=== PATIENT | male | born 1945 | race Caucasian/White ===

== ENCOUNTER 2017-06-27 17:10 | Inpatient (IN) | payer MEDICARE ==
[~2017-06-27] VITALS: Ht 180.3 cm; Wt 80.3 kg
[~2017-06-27 17:10] MED LIST: ALLOPURINOL 30300 M1 PO; ALLOPURINOL PO; ATORVASTATIN CA40 MG PO; BAYER CHEWABLE81 MG PO; CENTRUM SILVER1 EAC4 PO; CLARITIN10 MG PO; CLONIDINE PO; COLCHICINE 0.60.6 M1 PO; DILTIAZEM 24HR120 M1 PO; ELIQUIS2.5 MG PO; ELIQUIS5 MG PO; FLOMAX0.4 MG PO; IRON159 MG PO; LASIX 40 MG TAB40 M2 PO; LISINOPRIL-HCT1 EAC1 PO; LISINOPRIL-HCT1 EAC2 PO; LISINOPRIL20 MG PO; LISINOPRIL40 MG PO; MEDROL DOSPAK21 TA1 PO; PACERONE 200 M200 M1 PO; PERCOCET 7.5-31 EACH PO; POTASSIUM20 PO; PREDNISONE 2.52.5 M1 PO; PRILOSEC 20 MG20 MG PO; PRINIVIL20 MG PO; TRIAMTERENE-HC1 EAC1 PO
[2017-06-27 17:14] VITALS: BP 164/84
[2017-06-27] MEDS ORDERED: ULORIC80 MG PO (17:23)
[2017-06-27] MEDS ORDERED: OCUVITE SOFTGE1 EAC1 PO (17:23)
[2017-06-27] MEDS ORDERED: FISH OIL 1,001000 M2 PO (17:26)
[2017-06-27] MEDS ORDERED: HYDRALAZINE 2525 MG PO (17:26)
[2017-06-27] MEDS ORDERED: FLECAINIDE ACET50 M2 PO (17:27)
[2017-06-27 17:38] LABS: ABSOLUTE BASOPHILS 0.1 thou/uL (0.0-0.2); ABSOLUTE EOSINOPHILS 0.4 thou/uL (0.0-0.7); ABSOLUTE LYMPHOCYTES 1.9 thou/uL (0.8-5.3); ABSOLUTE MONOCYTES 1.1 thou/uL (0.0-1.2); ABSOLUTE NEUTROPHILS 7.4 thou/uL (1.6-8.1); BASOPHILS 0.9 %; EOSINOPHILS 3.3 %; HEMATOCRIT 33.2 % (42.0-52.0); LYMPHOCYTES 17.6 %; MCHC 33.2 g/dL (28.0-37.0); MCV 84.4 fL (80.0-100.0); MONOCYTES 10.1 %; MPV 7.9 fl. (7.2-11.1); NUCLEATED RBCS 0 /100WBC; PLATELET COUNT* 310 thou/uL (150-400); POLYS 68.1 %; RBC 3.93 mil/uL (4.50-6.00); RDW-CV 15.1 % (10.5-14.5); WBC 10.9 thou/uL (4.0-11.0)
[2017-06-27 17:53] LABS: ANION GAP 11 mmol/L (7-16); BUN 20 mg/dL (7-18); CALCIUM 8.9 mg/dL (8.5-10.1); CHLORIDE 101 mmol/L (98-107); CO2 27 mmol/L (21-32); GLUCOSE 126 mg/dL (70-99); SODIUM 139 mmol/L (136-145)
[2017-06-27 17:57] LABS: POTASSIUM 2.9 mmol/L (3.5-5.1)
[2017-06-27 18:02] LABS: INR 1.2; PROTIME 11.2 Seconds (9.20-11.50)
[2017-06-27 18:14] LABS: ALBUMIN 2.8 g/dL (3.4-5.0); ALKALINE PHOSPHATASE 157 U/L (46-116); LIPASE 151 U/L (73-393); MAGNESIUM 1.6 mg/dL (1.8-2.4); NT-PRO BRAIN NAT PEPTIDE 16981 pg/mL (<300); SGOT 22 U/L (15-37); SGPT 17 U/L (30-65); TOTAL BILIRUBIN 0.8 mg/dL (<0.1-1.0); TOTAL PROTEIN 7.4 g/dL (6.4-8.2); TROPONIN-I LEVEL <0.06 ng/mL (<0.06)
--- NOTE | 2017-06-27 20:33 | NUR ---
0.9% NS INFUSING ON IV PUMP AT 70ML/HR, LEVAQUIN INFUSING PIGGYBACKED TO NS FOR INFUSION ENROUTE TO FLOOR. NO SWELLING OR ERYTHEMA AT IV SITE.
[2017-06-27 20:40] VITALS: BP 167/85
[2017-06-27] MEDS ORDERED: ATORVASTATIN CA40 MG PO (21:00)
[2017-06-27 21:02] VITALS: BP 163/53
[2017-06-28] VITALS: BP 146/69
[2017-06-28 04:00] VITALS: BP 142/64
[2017-06-28 05:33] LABS: CALCIUM 8.1 mg/dL (8.5-10.1); CREATININE 2.1 mg/dL (0.6-1.3); MAGNESIUM 1.5 mg/dL (1.8-2.4); POTASSIUM 3.7 mmol/L (3.5-5.1)
--- NOTE | 2017-06-28 05:51 | NUR ---
PATIENT ARRIVED VIA CART FROM ED AROUND 2039. A/OX4 AND PLEASANT. TELE MONITOR TRACING SR/BBB WITH PAC'S AND PVC'S THIS AM. APPEARS TO BE AFIB NOW WITH HR UP TO 120'S ABOUT 15 MINUTES AFTER BREATHING TREATMENT. PT REPORTS FEELING FAST HR, BUT DENIES ANY OTHER SYMPTOMS. VSS. ON ROOM AIR. IV SALINE LOCKED. UP AD MARTHA, VOIDING PER URINAL. SEE I&O'S. GRANDDAUGHTER WORKS HERE. SEE CHARTING. CALL LIGHT IN REACH, WILL CONTINUE WITH PLAN OF CARE.
[2017-06-28 08:00] VITALS: BP 113/56
[2017-06-28 12:00] VITALS: BP 137/87
--- NOTE | 2017-06-28 12:07 | NUR ---
CM ASSESSMENT: Pt is A&O. Resides at home with his . Independent with ADLs. No DME. No hx of HH or SNF. Anticipate dc to home tomorrow. Following.
--- NOTE | 2017-06-28 12:54 | EKG ---
[place] [address] ELECTROCARDIOGRAM REPORT Name: RAJNI EDWARDS Room: [address] ADM IN [facility]#: [id number] Admission: 06/27/17 Attend Phys: Korey Maradiaga Discharge: Date of : 45 Report #: [id number] THIS REPORT FOR: //name// 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: Sandie REYES : 1945 Requested By: Corey Rosario Order Number: [id number] MD: Juan Manuel Garnica Measurements Intervals [place] Rate: 113 P: [place]: QRS: -63 QRSD: 144 T: 109 QT: 359 QTc: 493 Interpretive Statements Atrial fibrillation Nonspecific IVCD with LAD LVH with secondary repolarization abnormality Anterior infarct, old Compared to ECG 04/04/2016 02:13:14 Sinus rhythm no longer present Electronically Signed On 06-28-2017 12:54:15 POWERHOUSE ENGINEER by Juan Manuel Garnica [email or web address] <ELECTRONICALLY SIGNED> By: Juan Manuel Garnica MD, [facility] 06/28/17 1254 1715 1715 Juan Manuel Garnica MD, [facility] /EPI
--- NOTE | 2017-06-28 15:25 | 2DMMODE ---
[place] [address] 2 D/M-MODE ECHOCARDIOGRAM Name: RAJNI EDWARDS Room: [address] IN [facility]#: [id number] Admission: 06/27/17 Attend Phys: Danilo Martinez Discharge: Date of : 45 Date of Service: 06/28/17 1524 Report #: [id number] THIS REPORT FOR: //name// APPROVED REPORT Study performed: 06/28/2017 10:17:59 EXAM: Comprehensive 2D, Doppler, and color-flow Echocardiogram Patient Location: In-Patient Room #: [facility] Status: routine BSA: 2.00 HR: 98 bpm BP: 142/64 mmHg Rhythm: Atrial Fibrillation Other Information Study Quality: Good Indications Atrial Fibrillation Dyspnea 2D Dimensions LVEF(%): 40.26 (>50%) IVSd: 14.51 (7-11mm) LVOT Diam: 23.48 (18-24mm) LVDd: 60.95 mm PWd: 12.54 (7-11mm) Ascending Ao: 36.05 (22-36mm) LVDs: 48.75 (25-40mm) Aortic Root: 36.50 mm Sarkar's LVEF: 40.26 % Volumes Left Atrial Volume (Systole) LA ESV Index: 44.30 mL/m2 Aortic Valve AoV Peak John.: 1.61 m/s AO Peak Gr.: 10.36 mmHg LVOT Max P.21 mmHg AO Mean Gr.: 6.04 mmHg LVOT Mean P.81 mmHg LVOT Max V: 1.14 m/s AO V2 VTI: 25.78 cm LVOT Mean V: 0.79 m/s SONU (VTI): 3.14 cm2 LVOT V1 VTI: 18.71 [place] [address] 2 D/M-MODE ECHOCARDIOGRAM Name: RAJNI EDWARDS Room: [address] IN [facility]#: [id number] Admission: 06/27/17 Attend Phys: Danilo Martinez Discharge: Date of : 45 Date of Service: 06/28/17 1524 Report #: [id number] MV Decel. Time: 115.74 ms MV PHT: 33.56 ms MVA (PHT): 6.55 cm2 TDI Medial E' John.: 0.07 m/s Pulmonary Valve PV Peak John.: 0.98 m/s PV Peak Gr.: 3.85 mmHg Tricuspid Valve TR Peak Gr.: 32.38 mmHg RVSP: 37.00 mmHg Left Ventricle The left ventricle is normal size. There is mild global hypokinesis Mild to moderate concentric left ventricular hypertrophy. Left ventricular systolic function is mildly decreased. LVEF is 45-50%. This study is not technically sufficient to allow evaluation of the LV diastolic function due to atrial flutter. Right Ventricle The right ventricle is normal size. The right ventricular systolic function is normal. Atria Left atrium is moderately dilated. The right atrium is mildly dilated. Aortic Valve Mild aortic valve sclerosis. No aortic regurgitation is present. There is no aortic valvular stenosis. Mitral Valve The mitral valve is normal in structure. Mild mitral regurgitation. No evidence of mitral valve stenosis. Tricuspid Valve The tricuspid valve is normal in structure. Mild tricuspid regurgitation. The RVSP is 35-40 mmHg. Pulmonic Valve The pulmonary valve is normal in structure. There is no pulmonic valvular regurgitation. Great Vessels The aortic root is normal in size. [place]C [place] [address] 2 D/M-MODE ECHOCARDIOGRAM Name: RAJNI EDWARDS Room: [address]#: [id number] Admission: 06/27/17 Attend Phys: Danilo Martinez Discharge: Date of : 45 Date of Service: 06/28/17 1524 Report #: [id number] collapses with >50% inspiration Pericardium There is no pericardial effusion. Left pleural effusion. <Conclusion> The left ventricle is normal size. Mild to moderate concentric left ventricular hypertrophy. Left ventricular systolic function is mildly decreased. LVEF is 45-50%. There is mild global hypokinesis Left atrium is moderately dilated. The right atrium is mildly dilated. Mild mitral regurgitation. Mild tricuspid regurgitation. The RVSP is 35-40 mmHg. IVC is normal in size and collapses with >50% inspiration <ELECTRONICALLY SIGNED> By: Giovanni Rouse MD, FACC 06/28/17 1524 1524 1524 Giovanni Rouse MD, FACC /INF
[2017-06-28 16:00] VITALS: BP 125/57
--- NOTE | 2017-06-28 19:16 | NUR ---
ASSUMED CARE OF PT AT 0730. PT CONTINUES TO BE A&O X4 CALM AND COOPERATIVE. PT HAS DENIED ANY C/O PAIN OR DISTRESS. HE HAS BEEN TRACING A FIB WITH A BBB ON THE MONITOR TODAY WITH RATES IN THE LOW 100'S. HE HAS BEEN UP AD MARTHA IN HIS ROOM TODAY AND HAD A SHOWER THIS AFTERNOON. PT HAD SOME C/O ACID REFLUX AND WAS GIVEN CALCIUM CARB. THAT EFFECTIVELY REDUCED THIS TO A TOLERABLE LEVEL FOR A SHORT PERIOD, WAS CONTACTED AND PROTONIX PO STARTED. PT CURRENTLY RESTING IN BED WITH AT BEDSIDE. NURSING WILL CONTINUE TO MONITOR.
[2017-06-28 20:00] VITALS: BP 154/85
[2017-06-29] VITALS: BP 150/68
[2017-06-29 04:00] VITALS: BP 115/38; BP 141/67
--- NOTE | 2017-06-29 05:29 | NUR ---
ASSUMED CARE AROUND 1930. PT A/OX4 AND PLEASANT. MAIN COMPLAINT THIS SHIFT WAS HEARTBURN, REPORTED PROTONIX HAD NOT HELPED. ORDERS RECEIVED FOR PRN TUMS AND PEPCID. PT REPORTED SOME RELIEF. PT REPORTS RELIEF ALSO WHEN SITTING UP IN A CHAIR OR STANDING. AMBULATING IN HAND LAST NIGHT. TELE TRACING SR/BBB. ON ROOM AIR. IVF INFUSING ORDERED. VOIDING PER URINAL. VSS. REPORTED LEFT RIB PAIN THAT RESOLVED WHEN STANDING UP. SEE CHARTING. CALL LIGHT IN REACH, WILL CONTINUE WITH PLAN OF CARE.
[2017-06-29 05:45] LABS: HEMATOCRIT 26.9 % (42.0-52.0); MCH 27.4 pg (26.0-34.0); MCHC 32.2 g/dL (28.0-37.0); MCV 85.2 fL (80.0-100.0); MPV 8.1 fl. (7.2-11.1); NUCLEATED RBCS 0 /100WBC; PLATELET COUNT* 291 thou/uL (150-400); RBC 3.15 mil/uL (4.50-6.00); RDW-CV 15.3 % (10.5-14.5)
[2017-06-29 06:06] LABS: MAGNESIUM 1.7 mg/dL (1.8-2.4); POTASSIUM 3.9 mmol/L (3.5-5.1)
[2017-06-29 06:21] LABS: HEMOGLOBIN 8.6 gm/dL (14.0-18.0)
[2017-06-29 06:54] LABS: ABSOLUTE LYMPHOCYTES 0.9 thou/uL (0.8-5.3); ABSOLUTE MONOCYTES 0.2 thou/uL (0.0-1.2); ABSOLUTE NEUTROPHILS 16.9 thou/uL (1.6-8.1); ANISOCYTOSIS 1+; PLATELET ESTIMATE ADEQUATE
[2017-06-29 07:06] LABS: CREATININE 3.2 mg/dL (0.6-1.3)
[2017-06-29 07:30] VITALS: BP 135/66
[2017-06-29] MEDS ORDERED: FLECAINIDE ACET50 M1 PO (07:56)
[2017-06-29] MEDS ORDERED: DILTIAZEM 24HR120 M1 PO (07:56)
[2017-06-29 09:58] VITALS: BP 135/66
--- NOTE | 2017-06-29 10:34 | NUR ---
RECEIVED PT CARE 0700. PT IS ALERT AND ORIENTED X4. VSS. RECREATION COORDINATOR TRACING SR. PT DENIES PAIN. NO SOA. O2 SAT 96% ON ROOM AIR. UP INDEPENDENTLY IN ROOM. GAIT IS STEADY. AM ASSESSMENT CHARTED. MEDS PER MAR. PLANNING FOR PATIENT TO DC TO HOME TODAY PENDING XRAY RESULTS. CALL LIGHT WITHIN REACH. WILL CONTINUE TO MONITOR.
[2017-06-29] MEDS ORDERED: PREDNISONE 10 M10 M1 PO (10:57)
[2017-06-29] MEDS ORDERED: LEVAQUIN 250 M250 MG PO (10:58)
[2017-06-29 12:10] VITALS: BP 131/53
--- NOTE | 2017-06-29 13:17 | NUR ---
RECEIVED DISCHARGE ORDERS PER DR DIA. IV DISCONTNUED. BOAT WASHER REMOVED AND RETURNED TO NURSE'S DESK. PATIENT DRESSED, ALL BELONGINGS ARE PACKED AND LEAVING WITH PATIENT. EDUCATED THE PATIENT AND HIS SPOUSE ON F/U APPT WITH HIS PRIMARY AND CARDIOLOGY. EDUCATED ON HOME MEDICATIONS AND DOSES OF HIS CARDIAC MEDICATIONS. CLARIFIED FLECAINIDDE DOSE WITH DR BARR PRIOR TO PATIENT DISCHARGING (100MG DAILY). PAIENT VERBALIZED UNDERSTANDING. HE DENIES ANY QUESTIONS OR CONCERNS AT DISCHARGE. LEAVING VIA WHEELCHAIR ACCOMPANIED BY NURSING STAFF.
[2017-08-07] MEDS ORDERED: LISINOPRIL5 MG PO (15:23)
[2017-08-07] MEDS ORDERED: CARVEDILOL3.125 MG PO (15:23)
== END 2017-06-29 13:21 | disposition home or self-care (01) | DRG 291 ==
LOC: M.ERS 17:10 → M.2W 19:01 → M.TBA-ER 19:01 → M.2W 20:40
PROVIDERS: Family Medicine; Internal Medicine; ADMIT Internal Medicine
DX: I13.0 Hypertensive heart and chronic kidney disease with heart failure and stage 1 through stage 4 chronic kidney disease, or unspecified chronic kidney disease (principal); I50.43 Acute on chronic combined systolic (congestive) and diastolic (congestive) heart failure; J16.8 Pneumonia due to other specified infectious organisms; R65.10 Systemic inflammatory response syndrome (SIRS) of non-infectious origin without acute organ dysfunction; N18.3 Chronic kidney disease, stage 3 (moderate); E83.51 Hypocalcemia; E83.42 Hypomagnesemia; E78.5 Hyperlipidemia, unspecified; I48.91 Unspecified atrial fibrillation; E87.6 Hypokalemia; M10.9 Gout, unspecified; K21.9 Gastro-esophageal reflux disease without esophagitis; G43.909 Migraine, unspecified, not intractable, without status migrainosus; Z98.42 Cataract extraction status, left eye; Z79.899 Other long term (current) drug therapy; Z91.041 Radiographic dye allergy status; Z87.442 Personal history of urinary calculi; Z82.49 Family history of ischemic heart disease and other diseases of the circulatory system

== ENCOUNTER → 2017-07-18 | Outpatient (CLI) | payer MEDICARE ==
[~2017-07-18] MED LIST changes: +CARVEDILOL3.125 MG PO; +FISH OIL 1,001000 M2 PO; +FLECAINIDE ACET50 M1 PO; +FLECAINIDE ACET50 M2 PO; +HYDRALAZINE 2525 MG PO; +LEVAQUIN 250 M250 MG PO; +LISINOPRIL5 MG PO; +OCUVITE SOFTGE1 EAC1 PO; +PREDNISONE 10 M10 M1 PO; +ULORIC80 MG PO
== END ==
LOC: M.RAD 11:17
DX: J90 Pleural effusion, not elsewhere classified (principal); I12.9 Hypertensive chronic kidney disease with stage 1 through stage 4 chronic kidney disease, or unspecified chronic kidney disease; N18.4 Chronic kidney disease, stage 4 (severe); I48.0 Paroxysmal atrial fibrillation

== ENCOUNTER → 2017-08-07 | Outpatient (CLI) | payer MEDICARE ==
[~2017-08-07] VITALS: Ht 180.3 cm; Wt 79.4 kg
[2017-08-07 11:48] LABS: HEMATOCRIT 28.8 % (42.0-52.0); HEMOGLOBIN 9.4 gm/dL (14.0-18.0); MCH 26.9 pg (26.0-34.0); MCHC 32.5 g/dL (28.0-37.0); MCV 82.8 fL (80.0-100.0); MPV 7.4 fl. (7.2-11.1); RBC 3.48 mil/uL (4.50-6.00); RDW-CV 17.6 % (10.5-14.5)
[2017-08-07 11:58] LABS: APTT 29.5 Seconds (25.0-31.3); INR 1.1; PROTIME 10.8 Seconds (9.20-11.50)
[2017-08-07 11:59] LABS: ANION GAP 9 mmol/L (7-16); BUN 39 mg/dL (7-18); CALCIUM 9.1 mg/dL (8.5-10.1); CHLORIDE 103 mmol/L (98-107); CO2 30 mmol/L (21-32); CREATININE 2.8 mg/dL (0.6-1.3); GLUCOSE 118 mg/dL (70-99); POTASSIUM 3.9 mmol/L (3.5-5.1); SODIUM 142 mmol/L (136-145)
[2017-08-07 12:01] LABS: ALBUMIN 2.8 g/dL (3.4-5.0); ALKALINE PHOSPHATASE 163 U/L (46-116); CHOLESTEROL 197 mg/dL (<200); HDL CHOLESTEROL 62 mg/dL (>40); LDL CHOLESTEROL 114 mg/dL (<100); SGOT 18 U/L (15-37); SGPT 18 U/L (30-65); TC:HDL 3.2 Ratio (Not establshd); TOTAL BILIRUBIN 0.4 mg/dL (<0.1-1.0); TOTAL PROTEIN 6.9 g/dL (6.4-8.2); TRIGLYCERIDE 106 mg/dL (<150); VLDL 21 mg/dL (<40)
[2017-08-07 12:02] LABS: SERUM ASSESSMENT Clear
[2017-08-07 12:05] VITALS: BP 134/70
[2017-08-07 13:53] LABS: BE 1.8 mmol/L (-2 to +3); HCO3 26.7 mmol/L (22.0-26.0); PCO2 VENOUS 43.1 mmHg (41.0-51.0)
[2017-08-07 13:55] LABS: PO2 VENOUS 35.4 mmHg (35.0-45.0)
[2017-08-07 13:58] LABS: BE 0.7 mmol/L (-2 to +3); HCO3 25.3 mmol/L (22.0-26.0); PCO2 VENOUS 40.4 mmHg (41.0-51.0)
[2017-08-07 13:59] LABS: PO2 VENOUS 37.3 mmHg (35.0-45.0)
[2017-08-07 14:02] LABS: BE 0.8 mmol/L (-2 to +3); HCO3 24.9 mmol/L (22.0-26.0); PO2 70.1 mmHg (75.0-100.0); pH 7.435 (7.340-7.450)
[2017-08-07 14:04] VITALS: BP 133/71
[2017-08-07 14:21] VITALS: BP 133/66
[2017-08-07 14:46] VITALS: BP 131/77
--- NOTE | 2017-08-07 14:55 | EKG ---
[place] [address] ELECTROCARDIOGRAM REPORT Name: RAJNI EDWARDS Room: [facility]#: [id number] Admission: 08/07/17 Attend Phys: Giovanni Rouse MD Discharge: Date of : 45 Report #: [id number] THIS REPORT FOR: //name// [facility] Test Date: 2017-08-07 Test Time: 11:24:18 Pat Name: RAJNI EDWARDS Department: Room: Gender: M Residential Specialist: [facility] : 1945 Requested By: Giovanni Rouse Order Number: [id number] Reading MD: Juan Manuel Garnica Measurements Intervals [place] Rate: 89 P: [place]: QRS: -68 QRSD: 169 T: 113 QT: 448 QTc: 546 Interpretive Statements Atrial fibrillation RBBB and LAFB consider old anterior infarction LVH with secondary repolarization abnormality Compared to ECG 06/27/2017 17:15:50 rate slowed Electronically Signed On 08-07-2017 14:55:28 CDT by Juan Manuel Garnica [email or web address] <ELECTRONICALLY SIGNED> By: Juan Manuel Garnica MD, [facility] 08/07/17 1455 1124 1124 Juan Manuel Garnica MD, FACC /EPI
[2017-08-07 15:00] VITALS: BP 127/69
[2017-08-07 15:19] VITALS: BP 135/68
--- NOTE | 2017-08-07 15:30 | 2DMMODE ---
[place] [address] 2 D/M-MODE ECHOCARDIOGRAM Name: RAJNI EDWARDS Room: [facility]#: [id number] Admission: 08/07/17 Attend Phys: Giovanni Rouse, Discharge: Date of : 45 Date of Service: 08/07/17 1530 Report #: [id number] THIS REPORT FOR: //name// APPROVED REPORT Study performed: 08/07/2017 09:55:15 EXAM: Comprehensive 2D, Doppler, and color-flow Echocardiogram Patient Location: Out-Patient Status: routine BSA: 1.99 HR: 86 bpm BP: 130/70 mmHg Other Information Study Quality: Good Indications Atrial Fibrillation 2D Dimensions LVEF(%): 44.66 (>50%) IVSd: 14.16 (7-11mm) LVOT Diam: 20.27 (18-24mm) LVDd: 57.22 mm PWd: 14.16 (7-11mm) Ascending Ao: 32.29 (22-36mm) LVDs: 44.35 (25-40mm) Aortic Root: 24.78 mm Sarkar's LVEF: 44.66 % Volumes Left Atrial Volume (Systole) LA ESV Index: 52.80 mL/m2 Aortic Valve AoV Peak John.: 1.58 m/s AO Peak Gr.: 9.99 mmHg LVOT Max P.30 mmHg AO Mean Gr.: 5.86 mmHg LVOT Mean P.45 mmHg LVOT Max V: 0.91 m/s AO V2 VTI: 31.00 cm LVOT Mean V: 0.54 m/s SONU (VTI): 1.82 cm2 LVOT V1 VTI: 17.51 cm Mitral Valve MV Decel. Time: 91.84 ms MV PHT: 26.63 [place] [address] 2 D/M-MODE ECHOCARDIOGRAM Name: RAJNI EDWARDS Room: [facility]#: [id number] Admission: 08/07/17 Attend Phys: Giovanni Rouse, Discharge: Date of : 45 Date of Service: 08/07/17 1530 Report #: [id number] MVA (PHT): 8.26 cm2 TDI Medial E' John.: 0.09 m/s Lateral E' John.: 0.22 m/s Pulmonary Valve PV Peak John.: 0.86 m/s PV Peak Gr.: 2.95 mmHg Tricuspid Valve TR Peak Gr.: 42.00 mmHg RVSP: 47.00 mmHg Left Ventricle Left ventricle is mildly dilated. There is global hypokinesis. Mild concentric left ventricular hypertrophy. Left ventricular ejection fraction is moderate to severely decreased. LVEF is 30-35%. This study is not technically sufficient to allow evaluation of the LV diastolic function due to atrial fibrillation. Right Ventricle The right ventricle is normal size. The right ventricular systolic function is normal. Atria Left atrium is moderately dilated. Right atrium is mildly dilated. Aortic Valve Aortic valve is mildly calcified. Mild aortic regurgitation. There is no aortic valvular stenosis. Mitral Valve The mitral valve is normal in structure. Severe mitral regurgitation. No evidence of mitral valve stenosis. Tricuspid Valve The tricuspid valve is normal in structure. Moderate tricuspid regurgitation. The RVSP is 60 mmHg. Pulmonic Valve The pulmonary valve is normal in structure. Mild pulmonic regurgitation. Great Vessels The aortic root is normal in size. IVC is normal in size and collapses with >50% [place] [address] 2 D/M-MODE ECHOCARDIOGRAM Name: RAJNI EDWARDS Room: [facility]#: [id number] Admission: 08/07/17 Attend Phys: Giovanni Rouse, Discharge: Date of : 45 Date of Service: 08/07/17 1530 Report #: [id number] Pericardium There is no pericardial effusion. <Conclusion> Left ventricle is mildly dilated. Mild concentric left ventricular hypertrophy. Left ventricular ejection fraction is moderate to severely decreased. LVEF is 30-35%. Left atrium is moderately dilated. Right atrium is mildly dilated. Aortic valve is mildly calcified. Mild aortic regurgitation. Severe mitral regurgitation. Moderate tricuspid regurgitation. The RVSP is 60 mmHg. Mild pulmonic regurgitation. IVC is normal in size and collapses with >50% inspiration <ELECTRONICALLY SIGNED> By: Giovanni Rouse MD, FACC 08/07/17 1530 1530 1530 Giovanni Rouse MD, FACC /INF
--- NOTE | 2017-08-09 17:11 | CARD ---
[address] [address] CARDIAC CATH REPORT Name: RAJNI EDWARDS Room: [facility]#: [id number] Admission: 08/07/17 Attend Phys: Giovanni Rouse MD Discharge: Date of : 45 Report #: [id number] THIS REPORT FOR: //name// APPROVED REPORT Study performed: 08/07/2017 11:39:47 Patient Details Patient Status: Out-Patient Room #: The patient is a 71 year-old male Event Personnel Giovanni Rouse Tank Builder And Erector, Kim Meier RN Senior Software Qa Analyst, Nina Russell Monitor, Emily Hawkins RTR Scrub Procedures Performed Art Access - R femoral artery* Michael Access - R femoral vein , Left Heart Catheterization, Right Heart Catheterization, Selective Right and Left Coronary Angiography Procedure Narrative The patient was brought electively to the Cardiac Catheterization Laboratory and was prepped and draped in a sterile manner. The right femoral was infiltrated with 1% Lidocaine subcutaneous anesthesia. The right femoral vein and artery were accessed via ultrasound guidance. A Right Heart Catheterization was performed with a 7 Fr. Ringgold-Rafael catheter and pressure were recorded. Cardiac outputs were obtained by the Thermal Dilution method. A 6fr Ultimum Sheath sheath was inserted into the right femoral artery. Coronary angiography was performed using coronary diagnostic catheters. The right coronary system was accessed and visualized with a Diagnostic JR 4 6fr catheter. The left coronary system was accessed and visualized with a Diagnostic JL 4 6fr catheter. Pre-demployment femoral angiogram was performed . Closure device was deployed with a 6 Fr MynxGrip 6/7F. The patient tolerated the procedure well and there were no complications associated with the procedure. There was no hematoma. Intraoperative Conscious Sedation Sedation start time: 12:47 Case end Time: 13:33 Fentanyl 50 mcg Versed 2 mg Fluoro Time: 19 minutes Dose: DAP [id number] cGycm2 1394.54 [place] [address] CARDIAC CATH REPORT Name: RAJNI EDWARDS Room: [facility]#: [id number] Admission: 08/07/17 Attend Phys: Goivanni Rouse MD Discharge: Date of : 45 Report #: [id number] Contrast Type and Amount: Visipaque 60 ml Coronary Angiography The patient's coronary anatomy is right dominant. Diagnostic Cath Left Main The left main coronary artery is very short and free of significant disease. LAD The left anterior descending coronary artery has an 80% ostial stenosis. There is a 50% mid stenoses noted. Diagonal 1 The first diagonal branch is small and free of significant disease. Diagonal 2 The second diagonal branch is a moderate size branch vessel without significant disease. Circumflex The circumflex has a 70% proximal and 50% mid stenoses. OM1 Free of significant disease OM2 Free of significant disease OM3 Free of significant disease Right Coronary The right coronary artery has a 70% mid stenosis and a 60% distal stenoses R PDA Free of significant disease Left Ventriculography Left Ventriculography was not performed. Hemodynamics The right atrial mean pressure is 5 mmHg. The right ventricular pressure is 51/11 mmHg. The pulmonary artery pressure is 54/7 mmHg with a mean of 24 mmHg. The mean pulmonary capillary wedge pressure is 15 mmHg. The aortic pressure is 137/71 mmHg with a mean of mmHg. The left ventricular pressure is 125/10 mmHg with a mean of mmHg. The left ventricular end diastolic pressure is 21 mmHg. PaO2 saturation is 65.70 %. Arterial saturation is 92.60 %. The cardiac output using thermo method is 6.55 L/min. The cardiac index using thermo method is 3.29 L/min/m2. Conclusion 1. Three-vessel coronary artery disease as outlined above. 2. Moderate pulmonary hypertension as outlined above. 3. Normal cardiac output. Recommendations 1. Referral to cardiothoracic surgery for coronary artery bypass grafting. 2. [place] [address] CARDIAC CATH REPORT Name: RAJNI EDWARDS Room: [facility]#: [id number] Admission: 08/07/17 Attend Phys: Giovanni Rouse MD Discharge: Date of : 45 Report #: [id number] 3. Consider Dave-Maze procedure. 4. Continue aggressive risk factor modification. <ELECTRONICALLY SIGNED> By: Giovanni Rouse MD, FAC 08/09/17 171 10 10Michaeashwin Rouse MD, [facility] /INF
== END | disposition home or self-care (01) ==
LOC: M.CRD 09:37
PROVIDERS: Internal Medicine Cardiovascular Disease
DX: I25.10 Atherosclerotic heart disease of native coronary artery without angina pectoris (principal); I51.7 Cardiomegaly; I08.3 Combined rheumatic disorders of mitral, aortic and tricuspid valves; I27.20 Pulmonary hypertension, unspecified; I13.0 Hypertensive heart and chronic kidney disease with heart failure and stage 1 through stage 4 chronic kidney disease, or unspecified chronic kidney disease; I50.9 Heart failure, unspecified; N18.9 Chronic kidney disease, unspecified; M10.9 Gout, unspecified; G43.809 Other migraine, not intractable, without status migrainosus; K21.9 Gastro-esophageal reflux disease without esophagitis; Z98.42 Cataract extraction status, left eye; Z98.890 Other specified postprocedural states; Z87.442 Personal history of urinary calculi; Z79.899 Other long term (current) drug therapy; Z79.01 Long term (current) use of anticoagulants; Z91.041 Radiographic dye allergy status; Z88.8 Allergy status to other drugs, medicaments and biological substances

== ENCOUNTER 2017-09-02 09:48 | Emergency (ER) | payer MEDICARE ==
[~2017-09-02] VITALS: Ht 180.3 cm; Wt 84.5 kg
[2017-09-02] MEDS ORDERED: LASIX 40 MG TAB40 M2 PO (10:03)
[2017-09-02 10:39] LABS: HEMATOCRIT 26.3 % (42.0-52.0); HEMOGLOBIN 8.5 gm/dL (14.0-18.0); MCH 26.3 pg (26.0-34.0); MCHC 32.1 g/dL (28.0-37.0); MCV 82.1 fL (80.0-100.0); MPV 7.9 fl. (7.2-11.1); NUCLEATED RBCS 0 /100WBC; PLATELET COUNT* 315 thou/uL (150-400); RBC 3.21 mil/uL (4.50-6.00); RDW-CV 17.7 % (10.5-14.5); WBC 6.6 thou/uL (4.0-11.0)
[2017-09-02 10:43] LABS: ANION GAP 11 mmol/L (7-16); BUN 61 mg/dL (7-18); CALCIUM 8.9 mg/dL (8.5-10.1); CHLORIDE 101 mmol/L (98-107); CO2 24 mmol/L (21-32); CREATININE 3.7 mg/dL (0.6-1.3); GLUCOSE 118 mg/dL (70-99); POTASSIUM 5.8 mmol/L (3.5-5.1); SODIUM 136 mmol/L (136-145)
[2017-09-02 10:50] LABS: ALKALINE PHOSPHATASE 183 U/L (46-116); MAGNESIUM 2.2 mg/dL (1.8-2.4); SGOT 61 U/L (15-37); SGPT 62 U/L (30-65); TOTAL BILIRUBIN 0.4 mg/dL (<0.1-1.0); TOTAL PROTEIN 7.2 g/dL (6.4-8.2); TROPONIN-I LEVEL <0.06 ng/mL (<0.06)
[2017-09-02 11:01] LABS: URINE BILIRUBIN NEGATIVE (Negative); URINE BLOOD NEGATIVE (Negative); URINE CLARITY CLEAR; URINE COLOR YELLOW; URINE GLUCOSE-RANDOM NEGATIVE (Negative); URINE KETONES NEGATIVE (Negative); URINE LEUKOCYTES-REFLEX NEGATIVE (Negative); URINE NITRITE-REFLEX NEGATIVE (Negative); URINE PROTEIN 2+ (Negative); URINE UROBILINOGEN 0.2 E.U./dl (0.2-1.0)
[2017-09-02 11:10] LABS: HYALINE CASTS 4-10 Moderate /LPF (None Seen); SQUAMOUS 0-3 Few /LPF (0-3)
[2017-09-02 11:11] LABS: BACTERIA-REFLEX None Seen /HPF (None Seen); CRYSTALS None Seen /LPF (None Seen); MUCUS 0-3 Light strn/LPF (None Seen); URINE RBC 0-2 Rare /HPF (0-2); URINE WBC-REFLEX 0-5 Rare /HPF (0-5)
[2017-09-02 11:37] LABS: ABSOLUTE EOSINOPHILS 1.5 thou/uL (0.0-0.7); ABSOLUTE LYMPHOCYTES 1.3 thou/uL (0.8-5.3); ABSOLUTE MONOCYTES 0.4 thou/uL (0.0-1.2); ABSOLUTE NEUTROPHILS 3.4 thou/uL (1.6-8.1); ATYPICAL LYMPHS 6 %
[2017-09-02 11:41] LABS: PLATELET ESTIMATE ADEQUATE
[2017-09-02 12:14] VITALS: BP 135/81
--- NOTE | 2017-09-03 11:09 | EKG ---
[place] [address] ELECTROCARDIOGRAM REPORT Name: RAJNI EDWARDS [facility] [id number] Admission: 09/02/17 Attend Phys: Discharge: 09/02/17 Date of : 45 Report #: [id number] THIS REPORT FOR: //name// [facility] ED Test Date: 2017-09-02 Test Time: 09:55:38 Pat Name: RAJNI EDWARDS Department: Room: Gender: M Funeral Professional: : 1945 Requested By: Nguyen Walton Order Number: [id number] MD: Juan Manuel Garnica Measurements Intervals [place] Rate: 62 P: 57 [place]: 246 QRS: -67 QRSD: 175 T: 109 QT: 473 QTc: 481 Interpretive Statements Sinus rhythm consider old septal infarction Prolonged [place] interval Probable left atrial enlargement RBBB and LAFB LVH with secondary repolarization abnormality Baseline wander in lead(s) II Compared to ECG 08/07/2017 11:24:18 Atrial fibrillation no longer present Electronically Signed On 09-03-2017 11:09:24 CDT by Juan Manuel Garnica [email or web address] <ELECTRONICALLY SIGNED> By: Juan Manuel Garnica MD, FAC 09/03/17 1109 0955 0955 Juan Manuel Garnica MD, [facility] /EPI
== END 2017-09-02 12:18 | disposition home or self-care (01) ==
LOC: M.ERS 09:48
PROVIDERS: Personal Emergency Response Attendant
DX: E87.5 Hyperkalemia (principal); D64.9 Anemia, unspecified; N17.9 Acute kidney failure, unspecified; R06.02 Shortness of breath; I10 Essential (primary) hypertension; M10.9 Gout, unspecified; K21.9 Gastro-esophageal reflux disease without esophagitis; Z87.442 Personal history of urinary calculi; Z91.041 Radiographic dye allergy status; Z88.1 Allergy status to other antibiotic agents

== ENCOUNTER → 2017-09-03 | Outpatient (CLI) | payer MEDICARE ==
[2017-09-03 13:04] LABS: CALCIUM 9.2 mg/dL (8.5-10.1); CREATININE 3.2 mg/dL (0.6-1.3); POTASSIUM 5.6 mmol/L (3.5-5.1)
== END ==
LOC: M.LAB 12:24
PROVIDERS: Internal Medicine
DX: E87.5 Hyperkalemia (principal); I48.0 Paroxysmal atrial fibrillation; I10 Essential (primary) hypertension; E11.9 Type 2 diabetes mellitus without complications

== ENCOUNTER 2017-09-09 04:46 | Inpatient (IN) | payer MEDICARE ==
[~2017-09-09] VITALS: Ht 180.3 cm; Wt 78.9 kg
[2017-09-09] VITALS (18 sets, daily range): BP systolic 90–137; BP diastolic 45–73
[2017-09-09 05:21] LABS: HEMATOCRIT 33.7 % (42.0-52.0); HEMOGLOBIN 10.5 gm/dL (14.0-18.0); MCH 25.8 pg (26.0-34.0); MCHC 31.1 g/dL (28.0-37.0); MCV 83.1 fL (80.0-100.0); MPV 8.2 fl. (7.2-11.1); NUCLEATED RBCS 0 /100WBC; PLATELET COUNT* 435 thou/uL (150-400); RBC 4.06 mil/uL (4.50-6.00); RDW-CV 17.9 % (10.5-14.5); WBC 22.5 thou/uL (4.0-11.0)
[2017-09-09 05:26] LABS: ANION GAP 16 mmol/L (7-16); BUN 52 mg/dL (7-18); CALCIUM 10.3 mg/dL (8.5-10.1); CHLORIDE 101 mmol/L (98-107); CO2 22 mmol/L (21-32); CREATININE 3.2 mg/dL (0.6-1.3); GLUCOSE 280 mg/dL (70-99); SODIUM 139 mmol/L (136-145)
[2017-09-09 05:28] LABS: INR 1.1; PROTIME 10.6 Seconds (9.20-11.50)
[2017-09-09 05:36] LABS: ALBUMIN 3.2 g/dL (3.4-5.0); ALKALINE PHOSPHATASE 189 U/L (46-116); LIPASE 264 U/L (73-393); MAGNESIUM 2.1 mg/dL (1.8-2.4); NT-PRO BRAIN NAT PEPTIDE 18849 pg/mL (<300); SGOT 16 U/L (15-37); SGPT 21 U/L (30-65); TOTAL BILIRUBIN 0.5 mg/dL (<0.1-1.0); TOTAL PROTEIN 8.2 g/dL (6.4-8.2); TROPONIN-I LEVEL <0.06 ng/mL (<0.06)
[2017-09-09 06:34] LABS: ABSOLUTE EOSINOPHILS 1.6 thou/uL (0.0-0.7); ABSOLUTE LYMPHOCYTES 3.2 thou/uL (0.8-5.3); ABSOLUTE MONOCYTES 0.2 thou/uL (0.0-1.2); ABSOLUTE NEUTROPHILS 17.6 thou/uL (1.6-8.1); PLATELET ESTIMATE INCREASED
[2017-09-09 06:35] LABS: ANISOCYTOSIS 1+; CLUMPED PLTS OCCASIONAL
--- NOTE | 2017-09-09 07:00 | NUR ---
PT ARRIVED TO UNIT PER ED. PT TACHYPNEIC AND PLACED ON BIPAP. PT PLACED ON MONITOR-AFIB IN 70S. FAMILY AT BS AND UPDATED ON CARE
--- NOTE | 2017-09-09 10:00 | NUR ---
HR DECREASES TO 30S THEN BACK UP TO 50S. PT ASYMPTOMATIC. CARDIZEM GTT D/CD
--- NOTE | 2017-09-09 12:10 | EKG ---
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: GAIL : 1945 Requested By: Henry Isaac Order Number: [id number] MD: Onel Pillai Measurements Intervals [place] Rate: 118 P: 0 NV: 79 QRS: -70 QRSD: 238 T: 89 QT: 423 QTc: 593 Interpretive Statements Wide complex tachycardia, consider a flutter with 2:1 block Left atrial enlargement Right bundle branch block LVH with secondary repolarization abnormality Artifact in lead(s) I,II,aVR,aVL,V2 Compared to ECG 09/02/2017 09:55:38 Sinus rhythm no longer present Myocardial infarct finding no longer present First degree AV block no longer present Left anterior fascicular block no longer present Electronically Signed On 09-09-2017 12:10:43 CDT by Onel Pillai [email or web address] <ELECTRONICALLY SIGNED> By: Jodi Pillai MD, [facility] 09/09/17 1210 0455 0455 Jodi Pillai MD, [facility] /EPI
--- NOTE | 2017-09-09 12:11 | EKG ---
[place] [address] ELECTROCARDIOGRAM REPORT Name: RAJNI EDWARDS Room: [address] ADM IN [facility]#: [id number] Admission: 09/09/17 Attend Phys: Sotero Angulo, Discharge: Date of : 45 Report #: [id number] THIS REPORT FOR: //name// [facility] Test Date: 2017-09-09 Test Time: 09:27:12 Pat Name: RAJNI EDWARDS Department: Room: [address] Gender: M Recovery Room Rn: SSULLPOLINA : 1945 Requested By: Suzie Ng Order Number: [id number] Reading MD: Onel Pillai Measurements Intervals [place] Rate: 67 P: 35 AL: 221 QRS: -60 QRSD: 150 T: 170 QT: 421 QTc: 445 Interpretive Statements Sinus rhythm Prolonged AL interval Probable left atrial enlargement Left bundle branch block Compared to ECG 09/02/2017 09:55:38 Left bundle-branch block now present Myocardial infarct finding no longer present Left anterior fascicular block no longer present Right bundle-branch block no longer present Left ventricular hypertrophy no longer present Early repolarization no longer present Electronically Signed On 09-09-2017 12:11:35 CDT by Onel Pillai [email or web address] <ELECTRONICALLY SIGNED> By: Jodi Pillai MD, [facility] 09/09/17 121 6 6 Jodi Pillai MD, [facility] /EPI
--- NOTE | 2017-09-09 18:40 | NUR ---
PT RESTING IN BED THROUGHOUT SHIFT. PT DENIES CHEST PAIN. BIPAP REMOVED THIS AFTERNOON. PT TOLERATING O2@4L WELL. PT HR IN 30-50S. AFLUTTER/AFIB AND SBRADY WITH BOTH RBB AND LBBB. PT DIURESING WELL. FAMILY AT BS AND UPDATED ON PLAN OF CARE
--- NOTE | 2017-09-09 18:45 | NUR ---
PT BRADYCARDIC WITH MULTIPLE PAUSES. PT HYPOTENSIVE. EKG PERFORMED AND FAXED TO DR PEÑA. DR PEÑA NOTIFIED. ORDER TO HOLD ALL BP MEDS. DR PEÑA TO CALL DR JONES TO SEE IF HE IS AVAILABLE FOR PACEMAKER PLACEMENT. REPORT TO SHANNAN MANDEL
--- NOTE | 2017-09-09 21:00 | NUR ---
THIS NURSE RECEIVED REPORT FROM HARRIETT MANDEL, DURING REPORT PT NOTED TO HAVE A PUASE IN HEART RHYTHM, EKG DONE, DR PEÑA NOTIFIED, PT DENIES PAIN, DENIES SOA, PT RESTING IN BED WITH AT BEDSIDE, SUPPLEMENTAL O2 VIA NC, PEREZ CATH INTACT TO DEPENDENT DRAINAGE, NITROGLYCERIN DRIP INFUSING, AT 2014 THIS NURSE RECEIVES FURTHER ORDERS FROM DR PEÑA, SEE POS, PT COMPLAINING OF CHEST DISCOMFORT THAT COMES AND GOES, PT UNABLE TO DESCRIBE THE DISCOMFORT, SAYS IT IS NOT PAIN OR PRESSURE JUST DISCOMFORT SOMETIMES, THIS NURSE EXPLAINS PLAN OF CARE TO PT AND HIS , MEDICATIONS EXPLAINED, PT AND HIS EXPRESS UNDERSTANDING
[2017-09-10] VITALS (22 sets, daily range): BP systolic 88–141; BP diastolic 50–82
[2017-09-10 03:21] LABS: HEMOGLOBIN 9.2 gm/dL (14.0-18.0); MCH 26.3 pg (26.0-34.0); MCHC 32.9 g/dL (28.0-37.0); MCV 79.9 fL (80.0-100.0); MPV 7.9 fl. (7.2-11.1); RBC 3.5 mil/uL (4.50-6.00); RDW-CV 18.1 % (10.5-14.5); WBC 8.8 thou/uL (4.0-11.0)
[2017-09-10 03:29] LABS: ALBUMIN 2.5 g/dL (3.4-5.0); CALCIUM 8.8 mg/dL (8.5-10.1); CREATININE 2.9 mg/dL (0.6-1.3); MAGNESIUM 1.7 mg/dL (1.8-2.4); POTASSIUM 3.8 mmol/L (3.5-5.1); TOTAL BILIRUBIN 0.6 mg/dL (<0.1-1.0); TOTAL PROTEIN 6.7 g/dL (6.4-8.2)
--- NOTE | 2017-09-10 05:12 | NUR ---
pt continues resting quietly in bed with daughter at bedside, pt denies chest pain, he does report discomfort/funny feeling intermittently to lower left rib cage as of 429, denies soa, remains on supplemental 02 at 4l per nc, pt currently tracing a fib on cardiac monitoring, drip titrated per protocol, pts magnesium replaced this am, pt encouraged to turn q 2 hours, pt refuses turning upon last 2 requests, pt expresses no complaints/ concerns at this time
--- NOTE | 2017-09-10 08:05 | NUR ---
ASSUMED CARE OF PATIENT AFTER RECIEVING BEDSIDE REPORT. ASSESSMENT COMPLETED, VSS. PATIENT CURRENTLY ON DOBUTAMINE GTT, PATIENT TOLERATING WELL. PACER PADS IN PLACE, IF NEEDED. PATIENT HOPEFUL TO RECEIVE PACEMAKER OR TO FIND OUT OPTIONS TO MOVE FORWARD. RN EXPLAINED PNEUMONIA INFECTION, PATIENT STATED UNDERSTANDING. PATIENT REPORTED ADVERSE REACTION TO AMIODARONE IN THE PAST, STATES OPTHAMOLOGIST EXPRESSED CONCERN ABOUT CALCIFICATIONS IN EYES 2/2 AMIODARONE USE. 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 PATIENT DENIES ANY CHEST PAIN OR SHORTNESS OF BREATH AT THIS TIME. CALL LIGHT WTIHIN REACH, USE REINFORCED. WILL CONTINUE TO MONITOR.
[2017-09-10 13:01] LABS: URINE BILIRUBIN NEGATIVE (Negative); URINE BLOOD 1+ (Negative); URINE CLARITY CLEAR; URINE COLOR YELLOW; URINE GLUCOSE-RANDOM NEGATIVE (Negative); URINE KETONES NEGATIVE (Negative); URINE LEUKOCYTES-REFLEX NEGATIVE (Negative); URINE NITRITE-REFLEX NEGATIVE (Negative); URINE PROTEIN TRACE (Negative); URINE SPECIFIC GRAVITY 1.015 (1.005-1.030); URINE UROBILINOGEN 0.2 E.U./dl (0.2-1.0)
[2017-09-10 13:13] LABS: BACTERIA-REFLEX None Seen /HPF (None Seen); CASTS None Seen /LPF (None Seen); CRYSTALS None Seen /LPF (None Seen); SQUAMOUS 0-3 Few /LPF (0-3); URINE WBC-REFLEX 0-5 Rare /HPF (0-5)
--- NOTE | 2017-09-10 14:23 | EKG ---
[place] [address] ELECTROCARDIOGRAM REPORT Name: RAJNI EDWARDS Room: [address] ADM IN M.R.#: [id number] Admission: 09/09/17 Attend Phys: Sotero Angulo, Discharge: Date of : 45 Report #: [id number] THIS REPORT FOR: //name// [facility] Test Date: 2017-09-09 Test Time: 19:11:13 Pat Name: RAJNI EDWARDS Department: Room: [address] Gender: M Robot Technician: SSULLPOLINA : 1945 Requested By: Sotero Angulo Order Number: [id number] Reading MD: Giovanni Whittington Measurements Intervals [place] Rate: 58 P: 9 [place]: 186 QRS: -63 QRSD: 144 T: 174 QT: 438 QTc: 431 Interpretive Statements Sinus bradycardia Atrial premature complexes in couplets Sinus pause Left bundle branch block Compared to ECG 09/09/2017 09:27:12 Atrial premature complex(es) now present Sinus pause or arrest now present Electronically Signed On 09-10-2017 14:22:54 CDT by Giovanni Whittington [email or web address] <ELECTRONICALLY SIGNED> By: Giovanni Whittington MD, [facility] 09/10/17 1422 10 10 Giovanni Whittington MD, [facility] /EPI
[2017-09-10 14:26] LABS: MAGNESIUM 1.9 mg/dL (1.8-2.4); POTASSIUM 4.3 mmol/L (3.5-5.1)
--- NOTE | 2017-09-10 14:50 | NUR ---
ICU ROUNDING: CM SPOKE TO THE RN IN-CHARGE OF THE PATIEN AND SHE INFORMS THAT THE PATIENT IS NOW OFF ALL DRIPS AND MAY TRANSFER TO TELE LATER ON TODAY. CM WILL REMAIN AVAILABLE TO ASSIST AND FOLLOW NEEDED.
--- NOTE | 2017-09-10 16:38 | CON ---
[address] [address] CONSULTATION Name: RAJNI EDWARDS Room: [address] IN .R.#: [id number] Admission: 09/09/17 Attend Phys: Sotero Angulo, Discharge: Date of : 45 Report #: [id number] THIS REPORT FOR: //name// CC: Juan Manuel Angulo DATE OF SERVICE: 09/09/2017 CARDIOLOGY CONSULTATION HISTORY OF PRESENT ILLNESS: I was asked by Dr. Angulo to see this 71-year-old white male in cardiology consultation for evaluation and treatment of probable congestive heart failure. This man has known coronary artery disease. He is preop for 4-vessel bypass graft surgery at [facility] that was supposed to occur in the fairly near future. He has known ischemic cardiomyopathy. His most recent echo showed an ejection fraction of 30-35%; that study is from 08/07/2017. Additionally, he has mild aortic regurgitation, severe mitral regurgitation and moderate tricuspid regurgitation. His pulmonary pressure was 60 on that echo. He developed fairly rapidly progressive and acute shortness of breath last night and early this morning. He does have a history of pneumonia a couple of months ago. He had been having a lot of coughing and sputum production. His sputum was green and yellow. He has had that sputum production recently and thought he might be coming down with pneumonia again. He seems to have reflux and gets heartburn a lot at night and coughs a lot at night. He has been treated for reflux in the past, he had been on Prilosec, but it was stopped. He has had an esophageal stricture that needed dilating in the past. He is followed by Dr. Ziegler in [place] [place]. The possibility of aspiration should be entertained here. This man had a recent cardiac catheterization and coronary angiography, which demonstrated an 80% ostial LAD stenosis, 70% proximal circumflex stenosis, and a 70% mid right coronary stenosis. There was also a 60% distal stenosis in the right coronary. There was a 50% mid stenosis in the circumflex. Left main was free of disease. Left ventriculography was not performed. Additionally, he had a recent nuclear study, which showed evidence of large infarcts involving the inferior wall and apex. There was minimal residual ischemia and moderate to severe left ventricular dysfunction. He has a variety of other illnesses including essential hypertension, paroxysmal atrial fibrillation, hypercholesterolemia, gout, chronic kidney disease, right bundle branch block. He really has atrial fibrillation/flutter, I believe. He has gone into sinus here in the ICU this morning. On his EKG today he has left bundle branch block. On EKGs when he was admitted there was right bundle branch block and there was right bundle branch block on EKG from August. He did come in to the ER in what appears to be probably atrial flutter with 2:1. It could be sinus tachycardia, but I think it is more likely atrial flutter as when he did slow down was in what appeared to be atrial fib/flutter for a while. He is now in sinus rhythm. Before he presented, he did have an infected tooth and was put on antibiotics and his [address] [address] CONSULTATION Name: RAJNI EDWARDS Room: [address] IN [facility].#: [id number] Admission: 09/09/17 Attend Phys: Sotero Angulo, Discharge: Date of : 45 Report #: [id number] surgery was delayed. Additionally, this man has gout and chronic kidney disease. His creatinine today was 3.2 with BUN 52 and an estimated GFR of 19. Troponins were negative when he came in at this time; however, his NT-proBNP was 18,849 or nearly 19,000. A BNP several weeks ago was 990. He does appear to have alternating bundle branch block on EKGs, as today he has left bundle and last night he appeared to have right bundle when he was tachycardic, and he appeared to have a right bundle on an EKG from 09/02/2017. He was having chest pain as well when he came in. His chest pain was described as dull and 7-8 on a scale of 10. It went on for quite a while, over an hour, it was finally relieved when he came to the Emergency Room. He was placed on a nitroglycerin drip in the Emergency Room, he did get aspirin 325 mg on route to the ER. Apparently he did not get sublingual nitro. His chest pain has been relieved for several hours now. The most recent troponin was 2.4. PAST MEDICAL HISTORY: Essentially as described above. Of note, he does have a past history of smoking, but no longer smokes. He does have a history of hypercholesterolemia and high blood pressure. He has not had diabetes, although his blood sugar at this time was 242. It was postprandial, however. He has not had a family history of heart disease. He does have chronic renal disease. He has not had any peripheral vascular disease or carotid disease. He has not had claudication. He has not had strokes or TIAs. ALLERGIES: ALLERGIC TO IODINE, ESPECIALLY IV IODINE. HE IS ALSO ALLERGIC TO LEVAQUIN, CAUSES TENDINITIS. HOME MEDICATIONS: His home meds include carvedilol 3.25 mg b.i.d., lisinopril 5 mg b.i.d., hydralazine 50 mg b.i.d., flecainide 100 mg b.i.d., Eliquis 5 mg b.i.d., atorvastatin 40 mg daily, diltiazem 120 mg b.i.d., Uloric 80 mg daily, potassium 20 mEq daily and furosemide 40 mg p.r.n. REVIEW OF SYSTEMS: Positive for cough, sputum production, pneumonia, wheezing, palpitations, chest discomfort, shortness of breath with exercise, shortness of breath lying down, waking up short of breath, passing out, extremity edema, prediabetes, seasonal allergies, CONTRAST DYE ALLERGY, LEVAQUIN ALLERGY. Otherwise, his review of systems is negative for some 30 different complaints in 14 different categories including central nervous system, general, respiratory, cardiovascular, endocrine, gastrointestinal, genitourinary, hematologic, lymphatic, allergic, immunologic, psychiatric, musculoskeletal, skin, eyes, ears, nose, mouth, and throat. Please see review of systems form for details and negatives in review of systems. SOCIAL HISTORY: He is . 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 He does not smoke, drink or use illegal drugs. PHYSICAL EXAMINATION: GENERAL: He presents as a well-developed, well-nourished [place], [place] [address] CONSULTATION Name: RAJNI EDWARDS Room: [address]#: [id number] Admission: 09/09/17 Attend Phys: Sotero Angulo, Discharge: Date of : 45 Report #: [id number] acute distress. VITAL SIGNS: Pulse was 67 and irregular, now it is regular. Blood pressure is 100/60, respirations 29 and regular, he was on BiPAP and his temperature was 98.3 degrees. HEENT: His head was atraumatic. Eyes clear. NECK: Supple. There is no jugular venous distention or hepatojugular reflux. LUNGS: Revealed bibasilar rales that were moist. HEART: Revealed normal first and second heart sounds. There was no S4, no S3. There were no murmurs, rubs, thrills, heaves or gallops. PMI is nondisplaced. Rhythm was irregular when I examined him, the rate was in the 60s. PMI was not displaced. ABDOMEN: Soft, flat, nontender, no palpable masses, no organomegaly. EXTREMITIES: Reveal no cyanosis, clubbing or edema. NEUROLOGIC: The patient mentated normally, talked normally, moved all extremities normally. He was on BiPAP. IMPRESSION: 1. Congestive heart failure, acute on chronic, systolic and diastolic. 2. Probable small non-ST segment elevation myocardial infarction. 3. Pneumonia, possibly aspiration pneumonia. 4. Ischemic cardiomyopathy. 5. Coronary artery disease. 6. Essential hypertension. 7. Paroxysmal atrial fibrillation. 8. Hypercholesterolemia. 9. Gout. 10. Chronic kidney disease stage 4. 11. Alternating right bundle branch block and left bundle branch block. RECOMMENDATION: He is going to need aggressive diuresis and aggressive treatment for his pneumonia. I would leave him on the Eliquis and put him on low dose of aspirin. I would make sure he gets his hydralazine and low dose of lisinopril as I would stop his flecainide for now and consider putting him on amiodarone. He is likely going to need a pacemaker because of his alternating bundle branch block and discontinue his diltiazem. I will get a Pulmonary consult. Thank you very much for asking me to see the patient. If there are any questions, please feel free to contact me. <ELECTRONICALLY SIGNED> By: Jodi Pillai MD, [facility] 09/10/17 1638 [id number] [id number]. Onel Pillai MD, [facility] /nt
--- NOTE | 2017-09-10 17:40 | NUR ---
PATIENT DID VERY WELL WORKING TOWARDS GOALS THIS SHIFT. PATIENT ABLE TO BE OFF OF OXYGEN WHEN AWAKE. PATIENT DID REQUIRE 2L VIA NASAL CANNULA WHEN SLEEPING. PATIENT UP TO CHAIR TWICE TODAY FOR MEALS, PATIENT TOLERATED WELL. PATIENT DIURESED, PATIENT RESPONDED WELL. SEVERAL IN DEPTH CONVERSATIONS WITH FAMILY AND PHYSICIANS REGARDING PLAN OF CARE, PATIENT AND FAMILY SEEM TO UNDERSTAND. PATIENT DOWNGRADED TO TELEMETRY PER DR. TYSON AND DR. BARR. BEDSIDE REPORT TO BE GIVEN TO ONCOMING SHIFT.
--- NOTE | 2017-09-10 22:08 | NUR ---
REPORT GIVEN TO MINISTERIO OSEGUERA. PT. ALERT AND ORIENTED, TO TRANSFER TO 201. ABLE TO GO VIA WHEELCHAIR. VITAL SIGNS STABLE, IV SALINE LOCKED. ROOM AIR ON TRANSPORT. PT. TRANSFERRED TO ROOM 201 BY THIS RN AT 7824
[2017-09-11 04:00] VITALS: BP 112/59
[2017-09-11 04:58] LABS: HEMATOCRIT 26.7 % (42.0-52.0); HEMOGLOBIN 8.9 gm/dL (14.0-18.0); MCH 26.4 pg (26.0-34.0); MCHC 33.3 g/dL (28.0-37.0); MCV 79.1 fL (80.0-100.0); MPV 8.4 fl. (7.2-11.1); RBC 3.38 mil/uL (4.50-6.00); RDW-CV 17.5 % (10.5-14.5); WBC 10.2 thou/uL (4.0-11.0)
[2017-09-11 05:15] LABS: ALBUMIN 2.3 g/dL (3.4-5.0); CREATININE 2.9 mg/dL (0.6-1.3); POTASSIUM 4.5 mmol/L (3.5-5.1); TOTAL BILIRUBIN 0.3 mg/dL (<0.1-1.0); TOTAL PROTEIN 6.6 g/dL (6.4-8.2)
[2017-09-11 05:39] LABS: TROPONIN-I LEVEL 11.05 ng/mL (<0.06)
--- NOTE | 2017-09-11 06:52 | NUR ---
Pt arrived from ICU at 2144. Pt stayed up in recliner until approx 2330 when assisted to bed. C/O gout pain to R hand/arm which he states impairs his ability to push himself up from chair. Miranda draining clear yellow urine with some clots in tubing noted this am. In atrial flutter per monitor, rate 100's for much of night, but currently 70s-80s. VSS. Wears 3L O2 when sleeping, otherwise RA. stayed in pt's room overnight, then left just now to check on dogs at home, then run some errands. Pt has attentive and very involved family members. Will continue to monitor.
--- NOTE | 2017-09-11 07:44 | CON ---
[address] [address] CONSULTATION Name: RAJNI EDWARDS Room: [address] IN M.R.#: [id number] Admission: 09/09/17 Attend Phys: Sotero Angulo, Discharge: Date of : 45 Report #: [id number] THIS REPORT FOR: //name// CC: Juan Manuel Angulo REQUESTING PHYSICIAN: Dr. Pillai. REASON FOR CONSULTATION: Pulmonary infiltrates, possible pneumonia. DISCUSSION: The patient is a 71-year-old nonsmoking man. He has a known history of significant coronary artery disease and is to have coronary artery bypass grafting surgery as well as valve replacement surgery in the near future. He presented to the Emergency Department yesterday with significant shortness of breath. He was in marked distress, did require BiPAP. He had had fairly sudden onset of this and it was associated with chest pain. He was seen in the Emergency Department, noted to be quite dyspneic. Was placed on BiPAP, subsequently was transitioned over to O2 via nasal cannula. Was given Lasix. Chest x-ray revealed bilateral infiltrates. He has had some chronic upper airway congestion. He does have known history of allergies. He was treated for pneumonia here at [facility] several months ago. Some of his congestion was yellowish in color, there was some concern he could have pneumonia. He had an excellent diuresis overnight with over 4 liters out. He has remained afebrile. He has been on nasal cannula. Subjectively, he is feeling much better today. He is a lifelong nonsmoker. His history is remarkable that he did have asthma years ago. However, he has not had symptoms for close to 30 years. Even back when he was, he would use [id number]-qsqaxma inhalers. He does have ongoing issues with "allergies." It is primarily upper airway congestion, postnasal drip. He is not normally on any oxygen, inhalers at home. He was treated for pneumonia earlier this year as noted. His cardiac history is significant in that he does have a history of atrial fibrillation, found to have coronary artery disease and coronary artery bypass grafting surgery is to be done. However, he was also found to have significant mitral regurgitation. He was having dental work done. He had a tooth pulled in anticipation of valve replacement. PAST MEDICAL HISTORY: Also remarkable for chronic kidney disease, gout, small-bowel obstruction requiring exploratory laparotomy in year 2009, ruptured Achilles tendon (from fluoroquinolones), parathyroidectomy, GERD requiring esophageal dilatation in the past, repair of incisional hernia. HOME MEDICATIONS: Do not include any oxygen or inhalers. Does take Eliquis, Lipitor, Coreg, diltiazem, Uloric, flecainide, Lasix, hydralazine, lisinopril, [place] [address] CONSULTATION Name: GRACERAJNI Ivan Room: [address] IN [facility]#: [id number] Admission: 09/09/17 Attend Phys: Sotero Angulo, Discharge: Date of : 45 Report #: [id number]. SOCIAL HISTORY: He is a lifelong nonsmoker. He is . 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 FAMILY HISTORY: Positive for kidney disease, hypertension. REVIEW OF SYSTEMS: ROS was done. Note positives above. He did have a fair amount of congestion several months ago and he was in the hospital and treated for pneumonia. It did improve, though did not clear up completely. A lot of this stemmed from his upper airway. With his recent acute episode, he has noted some blood-tinged sputum. Chest pain he has has resolved. Did not have any associated nausea, vomiting with that. He has had some reflux type symptoms. No syncopal episodes. He is not aware of any fevers at home. Denies syncopal episodes. No swelling in his lower extremities. PHYSICAL EXAMINATION: GENERAL APPEARANCE: A man who looks stated age. He is resting in bed. His is at the bedside. He is alert, cooperative, able to speak in full sentences. He is in no acute distress. HEENT: Head is normocephalic, atraumatic. Sclerae nonicteric. Mucous membranes do look a little dry. NECK: Negative for adenopathy. Neck veins are not distended. Trachea is midline. HEART: Irregular irregular. No S3 is appreciated. LUNGS: Reveal breath sounds to be diminished. He does have some crackles heard at the bases. He does have a few late expiratory wheezes heard. Excursion is equal. No abdominal dullness to percussion and no decreased tactile fremitus. No E to A changes. ABDOMEN: Soft, without appreciable hepatosplenomegaly. No guarding or rebound tenderness. EXTREMITIES: Negative for edema. He does have SCDs on the lower extremities. SKIN: Warm and dry. NEUROLOGIC: He is alert and oriented x 3. LABORATORY AND X-RAY FINDINGS: Chest films were reviewed. On his initial study done yesterday morning, he did have extensive bilateral infiltrates. Had some blunting of costophrenic angles, which could be consistent with pleural effusions. On followup study done today, there has been dramatic improvement in his studies. No pleural effusions are noted. Does appear to have a nipple shadow present on the right. I do note he had a CT scan done of his chest in June when he was in the hospital and treated for pneumonia at that time. He did have bilateral pleural effusions noted at that time. He had bilateral infiltrates. He had some nodular infiltrate seen in the right upper lobe and to a certain degree in the left upper lobe. No worrisome masses were noted. On his chemistry, potassium is 3.8. Sodium is 140, BUN of 56, creatinine [place] 2[place] [address] CONSULTATION Name: GRACERAJNI Ivan Room: [address] IN [facility]#: [id number] Admission: 09/09/17 Attend Phys: Sotero Angulo, Discharge: Date of : 45 Report #: [id number] Troponins have bumped up this morning to 19.61. ProBNP yesterday 18,845. White blood cell count 8800 today. Yesterday was 22,500. Did not have a left shift. IMPRESSION: 1. Status post acute respiratory failure. Has improved considerably. Given the extensive infiltrates noted on his chest film yesterday and almost complete clearing on today's, most consistent with acute pulmonary edema. Does have what appears to be a nipple shadow on his chest x-ray. He did not have any nodules or masses noted in that area on the CT scan done late June of this year. It would have been just over 2 months ago. It is less likely, he does have a true abnormality there. 2. Non-ST elevation myocardial infarction. He already has known coronary artery disease and ischemic cardiomyopathy. Awaiting bypass surgery when medically stable. 3. Severe mitral regurgitation. Probably contributes to his florid pulmonary edema. 4. Chronic kidney disease. 5. Gout. 6. Recent episode of pneumonia. Clinically, I doubt he has any significant lower respiratory tract infection at this time. 7. History of allergies. I suspect a lot of his upper airway congestion and cough is related to that. 8. Non-massive hemoptysis. Associated with this acute event. He is already chronically anticoagulated with the Eliquis. With the acute pulmonary edema and presumed elevation in pulmonary artery pressures during that time, having hemoptysis is not unexpected. RECOMMENDATIONS: 1. We will add some Xopenex. Since he is wheezing on exam, this may help. However, I suspect much of the wheezing is probably related to the pulmonary edema. 2. Wean FiO2 as able. 3. Activity as tolerated. 4. Should be able to deescalate antibiotics as soon as well. <ELECTRONICALLY SIGNED> By: Regina Landa MD 09/11/17 0744 1247 [id number] Landa MD /nt
[2017-09-11 08:45] VITALS: BP 104/66
--- NOTE | 2017-09-11 08:45 | NUR ---
ASSUMED PT. CARE AND RECEIVED REPORT AT 0730. PT A/OX4, VSS, MONITOR ON TRACING AFIB. PT. C/O PAIN IN RIGHT ELBOW AND LEFT THUMB DUE TO GOUT, DENIES CP. ON RA @ 95%. CHRIS NOTED TO DD. PT. UP TO BATHROOM TO CLEAN UP, STEADY ON FEET. FULL ASSESSMENT COMPLETED, REFER TO CHARTING. UP TO RECLINER FOR BREAKFAST. CALL LIGHT IN REACH, WILL CONTINUE WITH PLAN OF CARE.
[2017-09-11 11:41] VITALS: BP 128/76
--- NOTE | 2017-09-11 12:08 | NUR ---
Pt is A&O. Resides at home with his . Normally very independent and active. No DME. No hx of HH or SNF. Goal is to return home at [place]. Following
[2017-09-11 15:38] VITALS: BP 122/65
--- NOTE | 2017-09-11 18:51 | NUR ---
PT. PROGRESSING TOWARDS GOALS. UP TO CHAIR AND AMBULATING IN ROOM TODAY. CHRIS DC'D PER ORDERS FROM DR. BARR. PT. ONE I.V. REMAINING IN PLACE TO LEFT JUGLULAR, DOES NOT WANT TO BE POKED AGAIN AT THIS TIME FOR BETTER POSITIONING. PT. POSSIBLE DC TO HOME TOMORROW TO FOLLOW WITH SURGEON FOR CABG. PT. STATED RELIEF THIS AFTERNOON TO RIGHT ELBOW GOUT PAIN. HOURLY ROUNDING COMPLETED THROUGH OUT THE DAY FOR PT. SAFETY.
[2017-09-11 20:18] VITALS: BP 127/66
[2017-09-11 23:25] VITALS: BP 122/60
[2017-09-12] VITALS (10 sets, daily range): BP systolic 95–159; BP diastolic 56–98
[2017-09-12 01:53] LABS: CALCIUM 9.5 mg/dL (8.5-10.1); POTASSIUM 4.6 mmol/L (3.5-5.1)
[2017-09-12 02:00] LABS: TOTAL BILIRUBIN 0.2 mg/dL (<0.1-1.0); TOTAL PROTEIN 7.7 g/dL (6.4-8.2)
[2017-09-12 02:13] LABS: TROPONIN-I LEVEL 5.63 ng/mL (<0.06)
--- NOTE | 2017-09-12 05:40 | NUR ---
Pt up ad alvin and ambulated in hallway at least 3X during early part of shift. Pt up in chair until appprox 0030 when pt got ready for bed. At 0045, pt called, c/o chest pressure right after lying down in bed. Rates 3/10, then increased to 6/10. COTTON GROWER initiated. Pt received 3 doses NTG, which brought pain down to 1. Reports pain moves from front of chest to back. SaO2 mid to upper 80s on RA. O2 placed per NC, titrated up to 5L before reaching low 90s. BP initially 150s/90s, then down to 140s/80s. Paged Dr. Rouse and updated on pt's event and condition. Orders received. See orders and COTTON GROWER documentation. Pt's called by dtr who was staying in pt's room for the night. arrived shortly afterwards. rubbed pt's back periodically, which pt reports helps relieve pressure. Pt continues to rate pain/pressure at 1, and states it continues to oscillate between chest and upper back. VSS. O2 decreased to 3L (SaO2 97% on 5L). Will continue to monitor.
--- NOTE | 2017-09-12 09:16 | EKG ---
[place] [address] ELECTROCARDIOGRAM REPORT Name: RAJNI EDWARDS Room: [address] ADM IN [facility].#: [id number] Admission: 09/09/17 Attend Phys: Sotero Angulo, Discharge: Date of : 45 Report #: [id number] THIS REPORT FOR: //name// [facility] Test Date: 2017-09-12 Test Time: 00:50:36 Pat Name: RAJNI EDWARDS Department: Room: [address] Gender: M Radiological Defense Officer: JOHN : 1945 Requested By: Sotero Angulo Order Number: [id number] Fransisco MD: Giovanni Rouse Measurements Intervals [place] Rate: 106 P: 200 [place]: 91 QRS: -67 QRSD: 180 T: 101 QT: 491 QTc: 653 Interpretive Statements Sinus tachycardia Left bundle branch block Baseline wander in lead(s) V1,V2,V3 Compared to ECG 09/09/2017 19:11:13 Sinus bradycardia no longer present Atrial premature complex(es) no longer present Sinus pause or arrest no longer present Electronically Signed On 09-12-2017 9:16:32 CDT by Giovanni Rouse [email or web address] <ELECTRONICALLY SIGNED> By: Giovanni Rouse MD, [facility] 09/12/17 0916 0050 0050 Giovanni Rouse MD, [facility] /EPI
--- NOTE | 2017-09-12 09:39 | NUR ---
ASSUMED CARE OF PATIENT AFTER REPORT THIS MORNING. PATIENT AWAKE, ALERT, AND ORIENTED APPROPRIATELY. PHYSICAL ASSESSMENT COMPLETED AND CHARTED. NO COMPLAINTS OF PAIN. VITAL SIGNS STABLE. OXYGEN SATURATION WITHIN HETAL LIMITS. SCHEDULED MEDICATIONS GIVEN, SEE EMAR FOR DOCUMENTATION. PATIENT TRANSFERS AND AMBULATES INDEPENDENTLY WITHOUT DIFFICULTY. USES CALL LIGHT APPROPRIATELY, WITHIN REACH. FAMILY IN ROOM. DENIES NEEDS. NURSING WILL CONTINUE TO MONITOR.
--- NOTE | 2017-09-12 17:43 | NUR ---
NO CHANGE IN PATIENT STATUS. REMAINS ALERT AND ORIENTED APPROPRIATELY. DENIES NEEDS. CALL LIGHT WITHIN REACH. NURSING WILL CONTINUE TO MONITOR.
[2017-09-12 19:57] LABS: CREATININE 2.9 mg/dL (0.6-1.3); POTASSIUM 5.6 mmol/L (3.5-5.1)
[2017-09-12 19:58] LABS: CALCIUM 8.9 mg/dL (8.5-10.1)
[2017-09-13] VITALS (8 sets, daily range): BP systolic 105–146; BP diastolic 65–81
[2017-09-13 05:02] LABS: CALCIUM 9.2 mg/dL (8.5-10.1); CREATININE 2.7 mg/dL (0.6-1.3); POTASSIUM 5.1 mmol/L (3.5-5.1)
--- NOTE | 2017-09-13 06:46 | NUR ---
Pt's granddaughter stayed in room overnight. Pt pain free until 0545; c/o pain to back, which later moved partly to chest. Rates 3/10. NTG given X 2 doses, and placed 2L O2. Pain relieved following 2nd dose of NTG. Pt stayed in recliner overnight bc he was concerned that he may develop angina if he went to bed, which is what occurred the night before. 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 VSS. Atrial flutter per monitor, HR 100s-110s. Will continue to monitor.
--- NOTE | 2017-09-13 07:20 | NUR ---
CHANGE OF SHIFT BEDSIDE REPORT GIVEN PATIENT SEEN AT BEDSIDE PATIENT SEEN SITTING UP IN RECLINER NO REQUESTS AT THIS TIME ASSUMED PATIENT CARE
--- NOTE | 2017-09-13 12:30 | NUR ---
PATIENT WITH C/O PAIN IN MID BACK TO FRONT OF L UPPER CHEST RATES AT 4-5 NTG SL GIVEN X [address] CHAN NOTIFIED VS AND HRR STABLE WILL CONT TO MONITOR
--- NOTE | 2017-09-13 14:30 | NUR ---
PATIENT WITH C/O BACK AMD CHEST PAIN RATES 5-6 AND RADIATING TO L SHOULDER NTG X [address] WITH RELIEF [address] CHAN NOTIFIED DR TO COME SEE PATIENT TREVA
--- NOTE | 2017-09-13 15:00 | NUR ---
DR CHAN TO SEE PATIENT ORDERS TO START NS AT 80CC/HR, HEPARIN GTT PER ACS PROTOCAL, PREMED WITH BENADRYL AND SOLUMEDROL IVP, CONSENT FOR CARDIAC CATH FAMILY AT BEDSIDE WILL CONT TO MONITOR AND PREP PATIENT FOR CARDIAC CATH PER [facility]
[2017-09-13 15:22] LABS: INR 1.1; PROTIME 10.7 Seconds (9.20-11.50)
[2017-09-13 15:25] LABS: CHOLESTEROL 182 mg/dL (<200); HDL CHOLESTEROL 53 mg/dL (>40); LDL CHOLESTEROL 104 mg/dL (<100); TC:HDL 3.4 Ratio (Not establshd); TRIGLYCERIDE 129 mg/dL (<150); VLDL 26 mg/dL (<40)
[2017-09-13 15:26] LABS: SERUM ASSESSMENT CLEAR
--- NOTE | 2017-09-13 15:45 | NUR ---
PATIENT WITH C/O CHEST PAIN L UPPER CHEST RATES 6 NTG GIVEN X 3 DOSES NOT MUCH RELIEF AT THIS TIME DR CHAN NOTIFIED ORDERS FOR MORPHINE IVP GIVEN PATIENT DIAPHORETIC ALSO VS STABLE BP 140S/80S-130S/70S HR 110S-120S O2 SATS 97-99% ON 2L NC BLOOD GLUCOSE CHECKED 238 MORPHINE 1M IVP GIVEN SOME RELIEF AND WILL CONT TO MONITOR AWAITNG TRANSPORT TO [facility] SET UP OPERATOR RADIAL
--- NOTE | 2017-09-13 16:45 | NUR ---
PATIENT TO DIRECTOR OF SALES HEPARIN GTT AT 10CC/HR NS AT 80CC/HR O2 AT 3L NC FAMILY AT BEDSIDE
--- NOTE | 2017-09-13 19:54 | NUR ---
PATIENT REPORT ICU PATIENT TO TRANSFER POST HEART CATH TO ICU FAMILY NOTIFIED OF ICU TRANSFER
--- NOTE | 2017-09-13 21:49 | NUR ---
REPORT RECEIVED FROM TELEMETRY AT 1940; PT ARRIVED AT 1944 FROM PACU. BP ON ART LINE 80/50, CUFF PRESSURE 71/45 MAP 53; RR 36 ON VENTILATOR. HR = 200s RR 36 ON VENT AND DOPAMINE AT 20 MCG/KG/MIN. ATTEMPTED TO OBTAIN EKG. DR CHAN AT BEDSIDE WHEN PT BP DROPPED, PT LOST PULSE. CODE BLUE CALLED, COMPRESSIONS STARTED. DR VALDES RESPONDED TO CODE BLUE; SEE CODE BLUE FLOW SHEET. CODE CALLED, TIME OF PRONOUNCED BY DR VALDES AT 2024. FAMILY AT BEDSIDE WHEN TIME OF CALLED. DR DIA NOTIFIED, STATED DR TYSON WILL SIGN CERTIFICATE.
--- NOTE | 2017-09-13 23:27 | NUR ---
BODY RELEASED TO [facility] AT 2322, LEFT VIA GURNEY, ACCOMPANIED BY FAMILY. FAMILY TOOK ALL BELONGINGS
--- NOTE | 2017-09-14 16:04 | CARD ---
[address] [address] CARDIAC CATH REPORT Name: RAJNI EDWARDS Room: [address] IN [facility]#: [id number] Admission: 09/09/17 Attend Phys: Sotero Angulo, Discharge: 09/13/17 Date of : 45 Report #: [id number] THIS REPORT FOR: //name// APPROVED REPORT Study performed: 09/13/2017 16:59:45 Patient Details Patient Status: In-Patient Room #: The patient is a 71 year-old male Event Personnel Giovanni Whittington [employer], Vianey Mauricio RN Floor Steward/Stewardess, Maxim Hebert (R) Monitor, Emily Hawkins RTR Scrub, Alanis Landry Monitor Procedures Performed Art Access - R femoral artery* CLEMENT Revasc AMI Total/Sub Single LAD C9606 AMIREVSING; selective coronary arteriography Indication STEMI Risk Factors Hypercholesterolemia, Hypertension Admission/Lab Medications/Medications given during procedure Platelet Aff. Inhib., Heparin Unfract. Procedure Narrative The patient was brought emergently to the Cardiac Catheterization Laboratory and was prepped and draped in a sterile manner. The right femoral was infiltrated with 1% Lidocaine subcutaneous anesthesia. A 6FR Darrington sheath was inserted into the right femoral artery. Coronary angiography was performed using coronary diagnostic catheters. The left coronary system was accessed and visualized with a 6FR JL5 catheter. The patient tolerated the procedure well and there were no complications associated with the procedure. There was no hematoma. Intraoperative Conscious Sedation Sedation start time: 1752 Case end Time: 1902 Versed [address] [place] [address] CARDIAC CATH REPORT Name: RAJNI EDWARDS Room: [address]#: [id number] Admission: 09/09/17 Attend Phys: Sotero Angulo, Discharge: 09/13/17 Date of : 45 Report #: [id number] Fluoro Time: 15.2 minutes Dose: DAP [id number] cGycm2 2091 mGy Contrast Type and Amount: Visipaque 200 ml Diagnostic Cath Left Main 0% narrowing LAD 100% proximal occlusion; after recanalization there was 40% proximal with 75% mid LAD stenosis Circumflex Dominant vessel with 75% proximal stenosis and 40% mid vessel narrowing with 75% ostial second marginal stenosis Right Coronary Previously defined to have 60% mid vessel narrowing Left Ventriculography Left Ventriculography was not performed. Hemodynamics The aortic pressure is 95/72 mmHg with a mean of 82 mmHg. PCI Technique Lesion Anticoagulation was achieved with Heparin. Percutaneous coronary intervention was performed on the proximal left anterior descending artery segment. The lesion stenosis prior to intervention was 100% with SD 0 flow. A 6FR XB 3.5 100CM Guide Catheter was used to engage the ostium. A IG: BMW 190cm Interventional Guidewire was used to cross the lesion. BALLOON DILATION A Balloon catheter Trek RX 2.5 X 12 was inserted and inflated up to 12.00atm for 11seconds. Repeat angiography revealed the following post-dilatation results: 50% stenosis. STENT DEPLOYMENT A drug-eluting stent Xience Alpine RX 3.0X15 was inserted and inflated up to 14.00atm for 12seconds. Additional Inflation: 15.00atm for 9seconds. Final angiography reveals 10 % stenosis with SD 3 flow. COMMENTS Apt recanalization of the ostial proximal LAD as noted above with a drug-eluting stent deployed, there was SD-3 flow the distal vessel. The patient had transitory improvement in systemic pressure in the 110 systolic range with a heart rate falling from 125 to 108. He developed respiratory failure with saturations in the 88-92% [place] [address] CARDIAC CATH REPORT Name: RAJNI EDWARDS Room: [address]#: [id number] Admission: 09/09/17 Attend Phys: Sotero Angulo, Discharge: 09/13/17 Date of : 45 Report #: [id number] After a a prolonged effort at intubation, systemic pressure fell to 60-80 systolic and the patient required augmented doses of dopamine to achieve systemic pressure of 80-90 systolic. Heart rate melonie to the 120 to 130 range. Lines were sutured in position and the patient was transferred to the ICU in cardiogenic shock after STEMI in the setting of left bundle branch block with total ostial LAD occlusion. Conclusion #1 acute anterior wall STEMI with total occlusion of the ostial LAD and SD 0 flow to the distal LAD #2 cardiogenic shock in the context of #1 #3 multivessel coronary artery disease characterized by the following: A 100% ostial/proximal LAD occlusion with recanalization demonstrating 40% proximal and 75% mid LAD narrowing B 75% proximal stenosis of the dominant circumflex with 40% mid vessel narrowing 80% ostial second marginal stenosis C previously defined 60% mid right coronary stenosis #4 successful percutaneous coronary intervention with deployment of drug-eluting stent at the site of 100% proximal LAD occlusion with 10% residual narrowing following stent deployment and SD-3 flow to the distal LAD #5 respiratory failure developing in the context of cardiogenic shock requiring intubation and controlled ventilation in the catheter lab Medications Administered Aggrastat bolus and infusion Diagnostic Cath Approved by: Giovanni Whittington MD Date/Time: 09/14/17 at 1601 hrs. <ELECTRONICALLY SIGNED> By: Giovanni Whittington MD, [facility] 09/14/17 1604 1604 [id number] Whittington MD, FAC /INF
--- NOTE | 2017-09-15 13:04 | EKG ---
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1945 Requested By: Giovanni Whittington Order Number: [id number] Reading MD: Adithya Coleman Measurements Intervals Wing Rate: 119 P: 0 TN: 64 QRS: -63 QRSD: 191 T: 98 QT: 429 QTc: 604 Interpretive Statements Sinus tachycardia RBBB and LAFB Left ventricular hypertrophy Abnrm T, probable ischemia, anterolateral lds Compared to ECG 09/12/2017 00:50:36 Left anterior fascicular block now present Right bundle-branch block now present Left ventricular hypertrophy now present Possible ischemia now present Left bundle-branch block no longer present Electronically Signed On 09-15-2017 13:04:26 CDT by Adithya Coleman [email or web address] <ELECTRONICALLY SIGNED> By: Adithya Coleman MD, [facility] 09/15/17 1304 [id number] Adithya Coleman MD, FAC /EPI
--- NOTE | 2017-09-17 17:30 | NUR ---
ENTERED ONTO RESTRAINT LOG 09/14/17.
== END 2017-09-13 20:25 | DRG 246 ==
LOC: M.ERS 04:46 → M.ICU 06:05 → M.TBA-ER 06:05 → M.ICU 06:40 → M.2W 09-10 22:09 → M.ICU 09-13 19:57
PROVIDERS: Emergency Medicine Emergency Medical Services; Internal Medicine; Internal Medicine Cardiovascular Disease; ADMIT Family Medicine
DX: I13.0 Hypertensive heart and chronic kidney disease with heart failure and stage 1 through stage 4 chronic kidney disease, or unspecified chronic kidney disease (principal); I50.43 Acute on chronic combined systolic (congestive) and diastolic (congestive) heart failure; I21.4 Non-ST elevation (NSTEMI) myocardial infarction; J96.01 Acute respiratory failure with hypoxia; R65.11 Systemic inflammatory response syndrome (SIRS) of non-infectious origin with acute organ dysfunction; N18.4 Chronic kidney disease, stage 4 (severe); R04.2 Hemoptysis; N17.9 Acute kidney failure, unspecified; I24.9 Acute ischemic heart disease, unspecified; M10.9 Gout, unspecified; K21.9 Gastro-esophageal reflux disease without esophagitis; I25.5 Ischemic cardiomyopathy; I25.10 Atherosclerotic heart disease of native coronary artery without angina pectoris; I48.0 Paroxysmal atrial fibrillation; E78.00 Pure hypercholesterolemia, unspecified; I45.10 Unspecified right bundle-branch block; I44.7 Left bundle-branch block, unspecified; D72.829 Elevated white blood cell count, unspecified; R00.0 Tachycardia, unspecified; I34.0 Nonrheumatic mitral (valve) insufficiency; J45.909 Unspecified asthma, uncomplicated; I49.8 Other specified cardiac arrhythmias; I95.9 Hypotension, unspecified; Z79.82 Long term (current) use of aspirin; Z79.899 Other long term (current) drug therapy; Z87.442 Personal history of urinary calculi; Z98.42 Cataract extraction status, left eye; Z95.5 Presence of coronary angioplasty implant and graft; Z88.1 Allergy status to other antibiotic agents; Z91.041 Radiographic dye allergy status; Z82.49 Family history of ischemic heart disease and other diseases of the circulatory system; Z84.1 Family history of disorders of kidney and ureter